=== PATIENT | female | born 1990 | race Caucasian/White ===

== ENCOUNTER 2016-10-04 10:20 | Emergency (ER) | payer SELFPAY ==
[~2016-10-04] VITALS: Ht 157.5 cm; Wt 68.0 kg
[2016-10-04] MEDS ORDERED: KETOROLAC TROMETHAMINE 30 MG/ML SYRINGE. IV ONE (11:30)
[2016-10-04] MEDS ORDERED: IV NORMAL SALINE 1000ML BAG 1,000 ML IV ONE (11:30)
[2016-10-04] MEDS ORDERED: METOCLOPRAMIDE HCL 10 MG/2 ML VIAL. IV ONE (11:30)
[2016-10-04] MEDS ORDERED: DIPHENHYDRAMINE 50 MG/ML VIAL IVP ONE (11:30)
[2016-10-04 12:22] LABS: BILIRUBIN,URINE NEGATIVE (NEG); GLUCOSE,URINE NEGATIVE (NEG); NITRITE,URINE NEGATIVE (NEG); PROTEIN,URINE 30 mg/dL (NEG-TRACE); UROBILINOGEN,URINE 0.2 mg/dL (0.2 mg/dL)
[2016-10-04 12:38] LABS: BACTERIA,URINE 0 /HPF (0-FEW); RBC,URINE OCC /HPF (0-2); SQUAMOUS EPITHELIAL CELL,UR MANY /LPF; WBC,URINE 0 /HPF (0-4)
[2016-10-04 12:58] VITALS: BP 117/81
--- NOTE | 2016-10-04 13:00 | PHYS DOC ---
Past Medical History Past Medical History: Other Additional Past Medical Histor: miscarriage,DEAF RIGHT EAR, CLEFT PALATE,EAR TUBES NONCA LEFT BREAST MASS Past Surgical History: Other Additional Past Surgical Histo: cleft palate as child, LEFT BREAST MASS Alcohol Use: None Drug Use: Marijuana Adult General Chief Complaint Chief Complaint: ABDOMINAL PAIN HPI HPI 26-year-old female presents with headache bodyaches nasal congestion and dry cough abdominal cramping some nausea and overall fatigue. She's also complained of some burning with urination. She states she is felt hot but does not take her temperature at home. She's had diminished appetite over the last 2 days. [] Review of Systems Review of Systems Constitutional: Denies fever or chills [] Eyes: Denies change in visual acuity, redness, or eye pain [] HENT: Denies nasal congestion or sore throat [] Respiratory: Denies cough or shortness of breath [] Cardiovascular: No additional information not addressed in HPI [] GI: Denies abdominal pain, nausea, vomiting, bloody stools or diarrhea [] : Denies dysuria or hematuria [] Musculoskeletal: Denies back pain or joint pain [] Integument: Denies rash or skin lesions [] Neurologic: Denies headache, focal weakness or sensory changes [] Endocrine: Denies polyuria or polydipsia [] Current Medications Current Medications Current Medications Medications (Trade) Dose Ordered Sig/Callie Start Time Stop Time Status Last Admin Dose Admin Diphenhydramine HCl (Benadryl) 25 mg 1X ONCE 10/04/16 11:30 10/04/16 11:34 DC 10/04/16 12:08 25 MG Ketorolac Tromethamine (Toradol) 30 mg 1X ONCE 10/04/16 11:30 10/04/16 11:34 DC 10/04/16 12:10 30 MG Metoclopramide HCl (Reglan) 10 mg 1X ONCE 10/04/16 11:30 10/04/16 11:34 DC 10/04/16 12:06 10 MG Sodium Chloride (Iv Sodium Chloride 0.9% 1000ml Bag) 1,000 ml @ 1,000 mls/hr 1X ONCE 10/04/16 11:30 10/04/16 12:29 DC 10/04/16 12:05 1,000 MLS/HR Allergies Allergies Allergies Coded Allergies Type Severity Reaction Last Updated Verified amoxicillin Allergy Intermediate Rash 09/01/14 Yes cefaclor Allergy Intermediate 10/25/15 Yes Physical Exam Physical Exam Constitutional: Well developed, well nourished, no acute distress, non-toxic appearance. [] HENT: Normocephalic, atraumatic, bilateral external ears normal, oropharynx moist, no oral exudates, nose normal. [] Eyes: PERRLA, EOMI, conjunctiva normal, no discharge. [] Neck: Normal range of motion, no tenderness, supple, no stridor. [] Cardiovascular:Heart rate regular rhythm, no murmur [] Lungs & Thorax: Bilateral breath sounds clear to auscultation [] Abdomen: Bowel sounds normal, soft, no tenderness, no masses, no pulsatile masses. [] Skin: Warm, dry, no erythema, no rash. [] Back: No tenderness, no CVA tenderness. [] Extremities: No tenderness, no cyanosis, no clubbing, ROM intact, no edema. [] Neurologic: Alert and oriented X 3, normal motor function, normal sensory function, no focal deficits noted. [] Psychologic: Affect normal, judgement normal, mood normal. [] Current Patient Data Vital Signs Vital Signs Date Time Temp Pulse Resp B/P Pulse Ox O2 Delivery O2 Flow Rate FiO2 10/04/16 12:58 117/81 98 10/04/16 10:47 98.7 112 24 Room Air 98.7 Lab Values Laboratory Tests Test 10/04/16 10:45 Urine Collection Type Unknown Urine Color Yellow Urine Clarity Turbid Urine pH 6.0 Urine Specific Odem 1.025 Urine Protein 30mg/dL (NEG-TRACE) Urine Glucose (UA) Negativemg/dL (NEG) Urine Ketones (Stick) Negativemg/dL (NEG) Urine Blood Large (NEG) Urine Nitrite Negative (NEG) Urine Bilirubin Negative (NEG) Urine Urobilinogen Dipstick 0.2mg/dL (0.2 mg/dL) Urine Leukocyte Esterase Negative (NEG) Urine RBC Occ/HPF (0-2) Urine WBC 0/HPF (0-4) Urine Squamous Epithelial Cells Many/LPF Urine Amorphous Sediment Present/HPF Urine Bacteria 0/HPF (0-FEW) Influenza Type A Antigen Negative (NEGATIVE) Influenza Type B Antigen Negative (NEGATIVE) EKG EKG [] Radiology/Procedures Radiology/Procedures [] Course & Med Decision Making Course & Med Decision Making Pertinent Labs and Imaging studies reviewed. (See chart for details) [ED course: Evaluation reveals a 26-year-old female with flulike symptoms and headache. She was given IV fluids Reglan and Toradol for her symptoms which did help alleviate her symptoms. Her urinalysis was unremarkable. I encouraged her to drink plenty of fluids over the course the next 24 hours.] Dragon Disclaimer Dragon Disclaimer This electronic medical record was generated, in whole or in part, using a voice recognition dictation system. Departure Departure Impression: Primary Impression: Headache Disposition: HOME, SELF-CARE Condition: STABLE Referrals: NO PCP (PCP) Patient Instructions: General Headache Without Cause, Viral Syndrome Additional Instructions: Thank you for allowing us to participate in your care today. Followup with your primary care physician in 3 days if your symptoms do not improve. Return to the emergency department you have any new or concerning findings. This should be evaluated by the primary care physician and any necessary consulting services for continued management within a few days after discharge. Return to emergency room if you have any new or concerning symptoms including but not limited to fever, chills, nausea, vomiting, intractable pain, any new rashes, chest pain, shortness of air, uncontrolled bleeding, difficulty breathing, and/or vision loss. You may have been prescribed medication that can change in your level of thinking and ability to operate machinery. These medications include hydrocodone and Ativan. Also, Benadryl has been known to do this as well. Be sure to check with your pharmacist and ask if the medications you've prescribed can affect your level of consciousness. I recommend not operating heavy machinery or driving while on medication such as these. Scripts Oseltamivir Phosphate (Tamiflu)75 Mg Capsule1 Cap PO BID influenza #10 CAP Prov:ANA SCOTT DO 10/04/16 Butalb/Acetaminophen/Caffeine (Fioricet 50-300-40 Mg Capsule)1 Each Capsule1 Each PO PRN Q4HRS PRN MIGRAINE HEADACHE #30 CAP Prov:ANA SCOTT DO 10/04/16 Problem Qualifiers Primary Impression: Headache Headache type: unspecified Headache chronicity pattern: unspecified pattern Intractability: not intractable Qualified Code: R51 - Headache ANA SCOTT DO Oct 04, 2016 13:00
[2016-10-04] MEDS ORDERED: OSEL75CA PO (13:06)
[2016-10-04] MEDS ORDERED: BUTA1CAP29 PO (13:06)
[2016-10-04 13:08] LABS: OBC FLU VALID
== END 2016-10-04 13:21 | disposition home or self-care (01) ==
LOC: ER 10:20
DX: R51 Headache (principal); M79.1 Myalgia; R10.9 Unspecified abdominal pain; R05 Cough; R30.0 Dysuria; F12.10 Cannabis abuse, uncomplicated; Z88.1 Allergy status to other antibiotic agents; Z88.8 Allergy status to other drugs, medicaments and biological substances
CPT/HCPCS: 81001; 81025; 87804; 96361; 96374; 96375; 99284; J1200; J1885; J2765; J7030

== ENCOUNTER 2016-11-06 10:25 | Emergency (ER) | payer SELFPAY ==
[~2016-11-06] VITALS: Ht 157.5 cm; Wt 68.0 kg
[~2016-11-06 10:25] MED LIST: BUTA1CAP29 PO; OSEL75CA PO
[2016-11-06 10:27] VITALS: BP 116/66
[2016-11-06] MEDS ORDERED: SULF1TAB24 PO (11:58)
[2016-11-06] MEDS ORDERED: POLY10DR3 RIGHTEYE (11:58)
--- NOTE | 2016-11-06 11:59 | PHYS DOC ---
Past Medical History Past Medical History: Other Additional Past Medical Histor: miscarriage,DEAF RIGHT EAR, CLEFT PALATE,EAR TUBES NONCA LEFT BREAST MASS Past Surgical History: Other Additional Past Surgical Histo: cleft palate as child, LEFT BREAST MASS Alcohol Use: Occasionally Drug Use: Marijuana Social History Narrative: pt denies 11/06/16 Adult General Chief Complaint Chief Complaint: EYE PROBLEMS HPI HPI Patient is a 26 year old female presents emergency department stating that she' s had a month long history of sinus congestion runny nose up her respiratory type symptoms. She states that she has not had any fevers or chills. She states in the last 24 hours her right eye has been red with yellow crusty discharge. She states this morning when she went to get up she was unable to open the eye. Patient denies any nausea vomiting diarrhea she states her last menstrual period was earlier this month but she also states that she missed her Cipro shot last month. She does state she continues to be sexually active. Review of Systems Review of Systems Constitutional: Denies fever or chills [] Eyes: Denies change in visual acuity, redness, or eye pain. Complaint of right eye redness and drainage. HENT:nasal congestion denies sore throat [] Respiratory: Denies cough or shortness of breath [] Cardiovascular: No additional information not addressed in HPI [] GI: Denies abdominal pain, nausea, vomiting, bloody stools or diarrhea [] : Denies dysuria or hematuria [] Musculoskeletal: Denies back pain or joint pain [] Integument: Denies rash or skin lesions [] Neurologic: Denies headache, focal weakness or sensory changes [] Endocrine: Denies polyuria or polydipsia [] Allergies Allergies Allergies Coded Allergies Type Severity Reaction Last Updated Verified amoxicillin Allergy Intermediate Rash 09/01/14 Yes cefaclor Allergy Intermediate 10/25/15 Yes Physical Exam Physical Exam Constitutional: Well developed, well nourished, no acute distress, non-toxic appearance. [] HENT: Normocephalic, atraumatic, bilateral external ears normal, oropharynx moist, no oral exudates, nose normal. Bilateral tympanic membranes appear to be normal. Patient with right maxillary sinus tenderness. Patient with congestion noted. No erythematous noted Eyes: PERRLA, EOMI, right conjunctivae red, no drainage noted from the eyelashes are around the eye. There does appear to be redness around the eye itself. Neck: Normal range of motion, no tenderness, supple, no stridor. [] Cardiovascular:Heart rate regular rhythm, no murmur [] Lungs & Thorax: Bilateral breath sounds clear to auscultation [] Skin: Warm, dry, no erythema, no rash. [] Back: No tenderness Extremities: No tenderness, no cyanosis, no clubbing, ROM intact, no edema. [] Neurologic: Alert and oriented X 3, normal motor function, normal sensory function, no focal deficits noted. [] Psychologic: Affect normal, judgement normal, mood normal. [] Current Patient Data Vital Signs Vital Signs Date Time Temp Pulse Resp B/P Pulse Ox O2 Delivery O2 Flow Rate FiO2 11/06/16 10:27 97.7 80 16 100 Room Air 97.7 EKG EKG [] Radiology/Procedures Radiology/Procedures [] Course & Med Decision Making Course & Med Decision Making Pertinent Labs and Imaging studies reviewed. (See chart for details) Patient was placed on eyedrops to help with conjunctivitis. She denies use of any consequences. Patient will also be placed on antibiotics for sinusitis. Recommended Tylenol or ibuprofen for fever chills generalized body aches and discomfort. Recommended plenty of fluids. Patient will be discharged home in stable condition. Signs symptoms to return back to emergency department as been provided. Patient agrees with discharge instructions treatment regimens and follow-up recommendations. [] Dragon Disclaimer Dragon Disclaimer This electronic medical record was generated, in whole or in part, using a voice recognition dictation system. Departure Departure Impression: Primary Impression: Sinusitis Additional Impression: Conjunctivitis Disposition: 01 HOME, SELF-CARE Condition: STABLE Referrals: NO PCP (PCP) Patient Instructions: Bacterial Conjunctivitis, [id number], Sinusitis, Easy- to-Read Additional Instructions: Activity as tolerated. Medication as prescribed. Use warm moist packs on the right eye to help in the morning when that is crusted over to be able to open the eye. Tylenol and ibuprofen for fever chills or otherwise body aches and discomfort. Drink plenty of fluids. Follow-up to primary care physician in the next 3-5 days. Return back to emergency prior signs symptoms of become worse. Scripts Polymyxin B Sulf/Trimethoprim (Polymyxin B-Tmp Eye Drops)10 Ml Drops1 Drop RIGHTEYE QID #10 ML Prov:DEBBIE CLARK NP 11/06/16 Sulfamethoxazole/Trimethoprim (Bactrim Ds Tablet)1 Each Tablet1 Tab PO BID #20 TAB Prov:DEBBIE CLARK NP 11/06/16 Problem Qualifiers DEBBIE CLARK NP Nov 06, 2016 11:59
== END 2016-11-06 12:08 | disposition home or self-care (01) ==
LOC: ER 10:25
DX: J32.9 Chronic sinusitis, unspecified (principal); H10.9 Unspecified conjunctivitis; F12.10 Cannabis abuse, uncomplicated; Z88.0 Allergy status to penicillin; Z88.1 Allergy status to other antibiotic agents
CPT/HCPCS: 81025; 99283